=== PATIENT | female | born 1945 | race Caucasian/White ===

== ENCOUNTER → 2021-08-10 | Outpatient (CLI) | payer MEDICARE, OTHER ==
[~2021-08-10] MED LIST: ABILIFY10 MG PO; ALDACTONE 25MG25 MG PO; BUPROPION HCL200 MG PO; DECADRON6 MG PO; ESCITALOPRAM OX20 MG PO; HYDROCHLOROTHIA25 MG PO; LEVOTHYROXINE50 MC1 PO; MELOXICAM7.5 MG PO; PROTONIX 40 MG40 M1 PO; ROPINIROLE HCL1 MG PO; SINGULAIR10 MG PO; VENTOLIN HFA 66.7 GM INH; WELLBUTRIN XL300 MG PO; XIGDUO XR 10 M1 EACH PO; ZOCOR20 MG PO
== END ==
LOC: EMI 11:06
DX: R42 Dizziness and giddiness (principal); H90.5 Unspecified sensorineural hearing loss; R26.81 Unsteadiness on feet; G31.9 Degenerative disease of nervous system, unspecified
CPT/HCPCS: 70551

== ENCOUNTER 2022-05-13 13:37 | Emergency (ER) | payer MEDICARE, OTHER ==
[2022-05-13 14:25] LABS: HEMOGLOBIN 14.8 gm/dl (12.3-15.3); RED BLOOD COUNT 4.93 M/UL (4.00-5.10); WHITE BLOOD COUNT 6.7 K/UL (4.5-11.0)
[2022-05-13 15:15] LABS: BUN/CREATININE RATIO 15 (0-10)
[2022-05-13] MEDS ORDERED: OMNICEF 300 MG300 MG PO ×2 (16:19→16:52)
== END 2022-05-13 17:04 | disposition home or self-care (01) ==
LOC: ER1 13:37
PROVIDERS: Emergency Medicine
DX: N30.90 Cystitis, unspecified without hematuria (principal)
CPT/HCPCS: 70450; 71045; 80053; 81001; 82550; 82553; 84484; 85025; 93005; 96374; 99285; J0696